=== PATIENT | female | born 1995 | race Caucasian/White ===

== ENCOUNTER 2018-11-21 13:35 | Emergency (ER) | payer MEDICAID, OTHER ==
[~2018-11-21] VITALS: Ht 162.6 cm; Wt 116.2 kg
[~2018-11-21 13:35] MED LIST: IBUP-2213 PO
[2018-11-21 14:08] VITALS: BP 132/75
--- NOTE | 2018-11-21 14:13 | NUR ---
PT AMBULATES TO BED 5
--- NOTE | 2018-11-21 14:14 | NUR ---
23 YO F PRESENTS TO ED CO A RAISED OPEN AREA LOCATED ON THE MEDIAL RIGHT BUTTOCK X 3 DAYS. PT STATES IT BEGAN HARD AND CAUSED INTENSE PAIN WITH MOVEMENT BUT THE AREA BEGAN DRAINING LAST NIGHT. PT DENIES FEVER, CHILLS, N/V. NO PAIN REPORTED AT THIS TIME. -- RAISED AREA IS RED/OPEN/MOIST. NO DRAINAGE AT THIS TIME. -- PMH: CHRONIC SINUSITIS -- RX: DENIES PT POSITIONED FOR COMFORT. HOB ELEVATED. SIDE RAIL UP X 1. VSS. NO APPARENT DISTRESS AT THIS TIME.
--- NOTE | 2018-11-21 15:15 | NUR ---
DR. SANTAMARIA AT BEDSIDE.
[2018-11-21 15:39] VITALS: BP 127/80
--- NOTE | 2018-11-21 15:39 | NUR ---
Patient discharged with v/s stable. Written and verbal after care instructions given and explained. Patient alert, oriented and verbalized understanding of instructions. Ambulatory with steady gait. All questions addressed prior to discharge. ID band removed. Patient advised to follow up with PMD. Rx of Bactrim DS, [place] and Keflex. given. Patient educated on indication of medication including possible reaction and side effects. Opportunity to ask questions provided and answered.
== END 2018-11-21 15:39 | disposition home or self-care (01) ==
LOC: MED 13:35
DX: L05.01 Pilonidal cyst with abscess (principal); Z79.1 Long term (current) use of non-steroidal anti-inflammatories (NSAID)
CPT/HCPCS: 99283

== ENCOUNTER 2023-01-10 00:20 | Emergency (ER) | payer OTHER ==
[~2023-01-10] VITALS: Ht 162.6 cm; Wt 131.1 kg
[2023-01-10 00:21] VITALS: BP 143/90
--- NOTE | 2023-01-10 00:24 | NUR ---
TO LOBBY A/W BED AMBULATORY
--- NOTE | 2023-01-10 02:35 | NUR ---
pt to bed 2
--- NOTE | 2023-01-10 02:36 | NUR ---
LEFT KNEE PAIN, FOR A WEEK, NO TRAUMA NOR INJURY
--- NOTE | 2023-01-10 02:40 | NUR ---
pt is awake and alert. room air and ambualtory.
[2023-01-10] MEDS ORDERED: NAPR-54 PO (03:25)
[2023-01-10 03:30] VITALS: BP 130/87
--- NOTE | 2023-01-10 03:57 | NUR ---
Patient discharged with v/s stable. Written and verbal after care instructions given and explained. Patient alert, oriented and verbalized understanding of instructions. Ambulatory with steady gait. All questions addressed prior to discharge. ID band removed. Patient advised to follow up with PMD. Rx of naproxen given. Patient educated on indication of medication including possible reaction and side effects. Opportunity to ask questions provided and answered. Pt left with her belongings.
== END 2023-01-10 03:30 | disposition home or self-care (01) ==
LOC: MED 00:20
DX: M25.562 Pain in left knee (principal); Z79.899 Other long term (current) drug therapy
CPT/HCPCS: 73562; 99283; Q0092

== ENCOUNTER 2024-02-22 22:33 | Emergency (ER) | payer OTHER ==
[~2024-02-22] VITALS: Ht 162.6 cm; Wt 133.8 kg
[~2024-02-22 22:33] MED LIST changes: +NAPR-337 PO
[2024-02-22 22:50] VITALS: BP 120/72; PULSE 83; RESP 18; TEMP 98; O2SAT 98
[2024-02-23] MEDS ORDERED: NAPR-337 PO (00:47)
[2024-02-23] MEDS: KETOROLAC 30 MG/ML VIAL IM ONE (00:52)
== END 2024-02-23 00:57 | disposition home or self-care (01) ==
LOC: MED 22:33
DX: M67.834 Other specified disorders of tendon, left wrist (principal); M67.432 Ganglion, left wrist; Z79.1 Long term (current) use of non-steroidal anti-inflammatories (NSAID)
CPT/HCPCS: 29125; 73110; 96372; 99283; J1885